=== PATIENT | female | born 1985 | race Hispanic/Latino ===

== ENCOUNTER 2021-04-04 14:34 | Outpatient (CLI) | payer MEDICAID | END 2021-04-04 14:35 | disposition home or self-care (01) | LOC: CSHMAMMO 14:34 → EDSTATUS 14:45 | PROVIDERS: ATTEND Family Medicine | DX: Z12.31 Encounter for screening mammogram for malignant neoplasm of breast (principal); Z91.89 Other specified personal risk factors, not elsewhere classified | CPT/HCPCS: 77067 ==

== ENCOUNTER 2023-10-22 11:54 | Emergency (ER) | payer SELFPAY ==
[2023-10-22 13:06] LABS: Influenza A by NAA Not Detected (NotDetected); Influenza B by NAA Not Detected (NotDetected); SARS-CoV-2 NAA Rapid Test DETECTED (NotDetected)
[2023-10-22] MEDS ORDERED: Ketorolac Tromethamine 30 MG (1 mL) VIAL ONE (13:30)
[2023-10-22 13:54] LABS: #Basophils 0.03 10x3/uL (0.0-0.2); #Eosinphils 0.02 10x3/uL (0.0-0.5); #Monocytes 0.82 10x3/uL (0.0-1.1); #Neutrophils 6.39 10x3/uL (1.5-8.4); %Basophils 0.4 % (0.0-2.0); %Eosinophils 0.3 % (0.0-6.0); %Lymphocytes 5.8 % (18.0-47.0); %Monocytes 10.5 % (0.0-10.0); %Neutrophils 81.7 % (40.0-75.0); Hematocrit 29.4 % (34.9-44.5); Hemoglobin 8.8 g/dL (12.0-15.5); Mean Corpuscular HGB CONC 29.9 g/dL (32.0-36.0); Mean Corpuscular Hemoglobin 22.7 pg (27.0-33.0); Mean Corpuscular Volume 75.8 fL (81.6-98.3); Mean Platelet Volume 9.4 fL (7.4-10.4); Platelet Count 360 10x3/uL (150-450); RBC Distribution Width 18.8 % (11.5-14.5); Red Blood Cell (RBC) Count 3.88 10x6/uL (3.90-5.03); White Blood Cell (WBC) Count 7.8 10x3/uL (3.5-10.5)
[2023-10-22] MEDS ORDERED: Ondansetron PF 4 MG/2 ML Vial ONE (14:02)
[2023-10-22 14:05] LABS: Anion Gap 19 mmol/L (10-20); BUN (Urea Nitrogen) 4 mg/dL (7.0-18.7); Calc. Creatinine Clearance 0 mL/min (70-130); Calcium 9.2 mg/dL (7.8-10.44); Carbon Dioxide 20 mmol/L (22-29); Chloride 101 mmol/L (98-107); Estimated GFR 112; Glucose 90 mg/dL (70-105); Potassium 3.5 mmol/L (3.5-5.1); Sodium 136 mmol/L (136-145)
[2023-10-22] MEDS ORDERED: Metoclopramide HCl 10 MG (2 mL) VIAL ONE (15:23)
[2023-10-22] MEDS ORDERED: Dexamethasone 10 MG/ML VIAL ONE (15:23)
[2023-10-22] MEDS ORDERED: diphenhydrAMINE 50 MG/ML VIAL ONE (15:23)
[2023-10-22] MEDS ORDERED: Pseudoephedrine HCl 30 MG TAB PO SCH (15:45)
[2023-10-22] MEDS ORDERED: Acetaminophen 500 MG TAB ONE (17:20)
== END 2023-10-22 17:43 | disposition home or self-care (01) ==
LOC: CSHERS 11:54
DX: U07.1 COVID-19 (principal); D64.9 Anemia, unspecified
CPT/HCPCS: 80048; 85025; 96361; 96365; 96366; 96375; J1100; J1200; J1885; J2405; J2765

== ENCOUNTER 2024-11-23 12:46 | Emergency (ER) | payer SELFPAY ==
[2024-11-23] MEDS ORDERED: Ondansetron PF 4 MG/2 ML Vial ONE (13:30)
[2024-11-23] MEDS ORDERED: Lidocaine Viscous Sol 2% 15 ml UD Cup ONE (13:31)
[2024-11-23 13:34] LABS: #Basophils 0.04 10x3/uL (0.0-0.2); #Eosinophils Less than 0.03 10x3/uL (0.0-0.5); #Monocytes 0.76 10x3/uL (0.0-1.1); #Neutrophils 7.53 10x3/uL (1.5-8.4); %Basophils 0.4 % (0.0-2.0); %Eosinophils 0.0 % (0.0-6.0); %Lymphocytes 11.0 % (18.0-47.0); %Monocytes 8.1 % (0.0-10.0); %Neutrophils 80.2 % (40.0-75.0); Hematocrit 30.5 % (34.9-44.5); Hemoglobin 9.1 g/dL (12.0-15.5); Mean Corpuscular Hemoglobin 22.4 pg (27.0-33.0); Mean Corpuscular Volume 74.9 fL (81.6-98.3); Platelet Count 394 10x3/uL (150-450); Red Blood Cell (RBC) Count 4.07 10x6/uL (3.90-5.03); White Blood Cell (WBC) Count 9.39 10x3/uL (3.5-10.5)
[2024-11-23 13:37] LABS: BHCG - Serum Negative (NEGATIVE); Pregs Control Background? CLEAR/WHITE (CLR/WHITE); Pregs Control Bar Appear? YES (CONTROL BAR)
[2024-11-23 13:44] LABS: ALT (SGPT) 23 U/L (Less than 34); AST (SGOT) 41 U/L (11-34); Albumin 4.0 g/dL (3.1-4.5); Alkaline Phosphatase 74 U/L (40-110); Anion Gap 18 mmol/L (10-20); BUN (Urea Nitrogen) 10 mg/dL (7.0-18.7); Bilirubin, Total 0.4 mg/dL (0.3-1.2); Calc. Creatinine Clearance 0 mL/min (70-130); Calcium 8.7 mg/dL (7.8-10.44); Carbon Dioxide 22 mmol/L (22-29); Chloride 100 mmol/L (98-107); Globulin 4.0 g/dL (2.4-3.5); Glucose 96 mg/dL (70-105); Lipase 17 U/L (8-78); Potassium 3.5 mmol/L (3.5-5.1); Sodium 136 mmol/L (136-145)
[2024-11-23 13:47] LABS: Troponin I Less than 0.010 ng/mL (< 0.028)
[2024-11-23 16:41] LABS: Troponin I Less than 0.010 ng/mL (< 0.028)
== END 2024-11-23 16:53 | disposition home or self-care (01) ==
LOC: CSHERS 12:46
DX: R07.9 Chest pain, unspecified (principal); R00.2 Palpitations
CPT/HCPCS: 36415; 71045; 80053; 83690; 84484; 84703; 85025; 85379; 93005; 96374; 96375; J2060

== ENCOUNTER 2025-01-20 09:35 | Emergency (ER) | payer SELFPAY ==
[2025-01-20] MEDS ORDERED: Ketorolac Tromethamine 30 MG (1 mL) VIAL ONE (10:37)
[2025-01-20 10:45] LABS: Hematocrit 30.6 % (34.9-44.5); Hemoglobin 9.4 g/dL (12.0-15.5); Mean Corpuscular Hemoglobin 23.0 pg (27.0-33.0); Mean Corpuscular Volume 74.8 fL (81.6-98.3); Platelet Count 376 10x3/uL (150-450); Red Blood Cell (RBC) Count 4.09 10x6/uL (3.90-5.03); White Blood Cell (WBC) Count 8.77 10x3/uL (3.5-10.5)
[2025-01-20 11:07] LABS: ALT (SGPT) 19 U/L (Less than 34); AST (SGOT) 44 U/L (11-34); Albumin 4.1 g/dL (3.1-4.5); Alkaline Phosphatase 70 U/L (40-110); Anion Gap 12 mmol/L (10-20); BUN (Urea Nitrogen) 7 mg/dL (7.0-18.7); Bilirubin, Total 0.3 mg/dL (0.3-1.2); Calc. Creatinine Clearance 0 mL/min (70-130); Calcium 8.4 mg/dL (7.8-10.44); Carbon Dioxide 25 mmol/L (22-29); Chloride 105 mmol/L (98-107); Globulin 4.1 g/dL (2.4-3.5); Glucose 87 mg/dL (70-105); Potassium 3.8 mmol/L (3.5-5.1); Sodium 138 mmol/L (136-145)
[2025-01-20 11:42] LABS: #Basophils 0.05 10x3/uL (0.0-0.2); #Eosinophils 0.06 10x3/uL (0.0-0.5); #Monocytes 0.78 10x3/uL (0.0-1.1); #Neutrophils 6.48 10x3/uL (1.5-8.4); %Basophils 0.6 % (0.0-2.0); %Eosinophils 0.7 % (0.0-6.0); %Lymphocytes 15.5 % (18.0-47.0); %Monocytes 8.9 % (0.0-10.0); %Neutrophils 73.8 % (40.0-75.0)
[2025-01-20 11:43] LABS: Glucose, Urine (Dipstick) Normal (Negative); Leukocyte Negative (Negative); Protein, Urine (Dipstick) Negative (Neg-Trace); Specific Gravity, Urine 1.010 (1.005-1.030)
[2025-01-20 11:43] LABS: MDiff Complete? YES; Microcytosis SLIGHT = 6-15 cells (100X) (0-5/hpf)
[2025-01-20 12:03] LABS: CAUTI Indications for Culture Pelvic or flank pain; WBC/HPF None Seen HPF (0-3)
[2025-01-20 12:04] LABS: Bacteria/HPF Rare-Few HPF (None Seen)
[2025-01-20 12:05] LABS: Urine Culture Reflex No No
[2025-01-20 12:44] LABS: BHCG - Serum Negative (NEGATIVE); Pregs Control Background? CLEAR/WHITE (CLR/WHITE); Pregs Control Bar Appear? YES (CONTROL BAR)
[2025-01-20] MEDS ORDERED: diphenhydrAMINE 50 MG/ML VIAL ONE (14:01)
[2025-01-20] MEDS ORDERED: Metoclopramide HCl 10 MG (2 mL) VIAL ONE (14:02)
== END 2025-01-20 14:30 | disposition home or self-care (01) ==
LOC: CSHERS 09:35
DX: R10.32 Left lower quadrant pain (principal); D64.9 Anemia, unspecified; N92.0 Excessive and frequent menstruation with regular cycle; Z75.3 Unavailability and inaccessibility of health-care facilities
CPT/HCPCS: 76856; 80053; 81001; 84703; 85025; 93976; 96372; 96374; 96375; J1200; J1885; J2765

== ENCOUNTER 2025-02-20 21:37 | Emergency (ER) | payer SELFPAY ==
[2025-02-20] MEDS ORDERED: Albuterol 2.5 MG (3 mL) NEB ONE (22:50)
[2025-02-20] MEDS ORDERED: Ondansetron PF 4 MG/2 ML Vial ONE (22:57)
[2025-02-20 23:23] LABS: ALT (SGPT) 30 U/L (Less than 34); AST (SGOT) 60 U/L (11-34); Albumin 3.8 g/dL (3.1-4.5); Alkaline Phosphatase 75 U/L (40-110); Anion Gap 18 mmol/L (10-20); BUN (Urea Nitrogen) 4 mg/dL (7.0-18.7); Bilirubin, Total 0.3 mg/dL (0.3-1.2); Calc. Creatinine Clearance 0 mL/min (70-130); Calcium 9.1 mg/dL (7.8-10.44); Carbon Dioxide 20 mmol/L (22-29); Chloride 106 mmol/L (98-107); Globulin 3.6 g/dL (2.4-3.5); Glucose 98 mg/dL (70-105); Lipase 21 U/L (8-78); Magnesium 2.1 mg/dL (1.6-2.6); Potassium 3.8 mmol/L (3.5-5.1); Sodium 140 mmol/L (136-145)
[2025-02-20 23:25] LABS: #Basophils 0.05 10x3/uL (0.0-0.2); #Eosinophils 0.03 10x3/uL (0.0-0.5); #Monocytes 0.50 10x3/uL (0.0-1.1); #Neutrophils 3.25 10x3/uL (1.5-8.4); %Basophils 0.9 % (0.0-2.0); %Eosinophils 0.6 % (0.0-6.0); %Lymphocytes 28.5 % (18.0-47.0); %Monocytes 9.3 % (0.0-10.0); %Neutrophils 60.1 % (40.0-75.0); Hematocrit 29.5 % (34.9-44.5); Hemoglobin 9.0 g/dL (12.0-15.5); Mean Corpuscular Hemoglobin 22.6 pg (27.0-33.0); Mean Corpuscular Volume 74.1 fL (81.6-98.3); Platelet Count 393 10x3/uL (150-450); Red Blood Cell (RBC) Count 3.98 10x6/uL (3.90-5.03); White Blood Cell (WBC) Count 5.40 10x3/uL (3.5-10.5)
[2025-02-20 23:29] LABS: Troponin I Less than 0.010 ng/mL (< 0.028)
[2025-02-20 23:45] LABS: Microcytosis SLIGHT = 6-15 cells (100X) (0-5/hpf)
[2025-02-20 23:48] LABS: MDiff Complete? YES
[2025-02-21] MEDS ORDERED: Acetaminophen 500 MG TAB ONE (00:40)
[2025-02-21] MEDS ORDERED: Ketorolac Tromethamine 30 MG (1 mL) VIAL ONE (00:40)
[2025-02-21] MEDS ORDERED: Albuterol 2.5 MG (3 mL) NEB ONE (00:47)
[2025-02-21] MEDS ORDERED: diphenhydrAMINE 25 MG CAP ONE (02:17)
== END 2025-02-21 02:33 | disposition home or self-care (01) ==
LOC: CSHERS 21:37
DX: J45.901 Unspecified asthma with (acute) exacerbation (principal); Z55.6 Problems related to health literacy
CPT/HCPCS: 36415; 71045; 80053; 83690; 83735; 84484; 85025; 85379; 87428; 93005; 94640; 94760; 96374; 96375; J1885; J2060; J2270; J2405; J7611